=== PATIENT | male | born 2005 | race Caucasian/White ===

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

== ENCOUNTER 2024-03-24 10:11 | Outpatient (REF) | payer BC, SELFPAY ==
--- OUTSIDE RECORDS SUMMARY | 2024-03-24 10:20 | XMS_ITS | Encounter Summary ---
Author Organization [facility] [place] [address] Care Team Providers Care Director Of Cloud Services Name Role Phone Inez Cash MD Primary Care Provider [phone] Reason for Visit * Reason Comments Follow-up Encounter Details Date Type Department Care Team (Late st Contact Info) Description 12/20/2012 10:45 AM EST Follow-Up Child Development at [facility], [place], [facility] [place] [id number] Mimi Maurice MD [facility] [address] Speech and language disorder (Primary Dx); Reading disability, developmental; Anxiety; Disruptive behavior disorder; Behavioral disorder Discharge Disposition: Home Social History Tobacco Use Types Packs/Day Years Used Date Smoking Tobacco: Never Smokeless Tobacco: Never Alcohol Use Standard Drinks/Week Comments No 0 (1 standard drink = 0.6 oz pur e alcohol) Sex and Gender Information Value Date Recorded Sex Assigned at Not on file Gender Identity Not on file Sexual Orientation Not on file documented as of this encounter Last Filed Vital Signs Vital Sign Reading Time Taken Comments Blood Pressure 109/66 12/20/2012 11:07 AM EST Pulse 96 12/20/2012 11:07 AM EST Temperature - - Respiratory Rate 20 12/20/2012 11:0 7 AM EST Oxygen Saturation - - Inhaled Oxygen Concentration - - Weight 35.2 kg (77 lb 9.6 oz) 3 11:07 AM EST Height 144.2 cm (4' 8.77) 12/20/2012 1 1:07 AM EST Head Circumference 54.5 cm 12/20/2012 11 :07 AM EST Body Mass Index 16.93 12/20/2012 11:07 AM EST Body Mass Index Percentile 59.74% 12/20 11:07 AM EST Growth Chart: [facility] (Boys, 2-2 0 Years) documented in this encounter Patient Instructions * Patient Instructions* Mimi Maurice MD - 12/20/2012 11:29 AM EST 1. I recommend continuing with Risperdal 0.5 mg (0.5 mL) twice daily 2. It sounds as if Torin is finally receiving the right amount of reading support this year. Given history of a significant reading disability he should receive reading support regularly through the school year as well as through the summer 3. I am so pleased that Torin is involved in some extracurricular activities such as soccer and basketball. 4. Continue with the behavioral management plans at school since they seem to really be effective for him this year. 5. Continue to provide Torin with social opportunities to get together with friends 6. Be wary of developmental optometrists if that is indeed what the OT is suggesting. Both the [employer] as well as the [employer] opthalmology have put out statements against vision therapy in that there is no evidence of such therapies being of assistance in children with reading disabilities. 7. We will do some bloodwork today as monitoring on the Risperdal-blood sugar and lipid panel documented in this encounter Progress Notes * Mimi Maurice MD - 12/20/2012 9:28 PM EST Torin Beatty [place] 2005 12/20/2012 Torin comes in for a follow up visit accompanied by his mother. As you may recall, Torin has a history of a significant language disorder, language based learning disabilities, anxiety and a disruptive behavior disorder. Currently torin is taking 0.5 mg of Risperdal bid, which is a dose increase that was managed in conjunction with his primary care provider this summer. Since the last visit, Torin has been generally doing quite well. He had a good school year last year and made good progress, but towards the end of the school year things became a little rough. He then had a very hard summer. His behavior became more and more aggressive and disruptive. He ended up being asked to leave a soccer camp after only one day. I had a discussion with his primary care provider regarding these behaviors and we slightly increased the dose of Risperdal up to 0.5 mg twice daily. With that, Torin has had a huge success. He started the school year well and is doing well both in terms of his learning progress as well as his behavior. His mother had been unsure about his new teacher since she is a little less structured, but she is very encouraging and gives Torin positive attention and it is working out very well. Torin has made good gains in terms of his reading and is finally starting to enjoy it as well. The reading became better after his mother and a new specialist in the school really pushed testing to be done, which revealed just how far behind Torin was. With the extra help, he really seems to be starting to take off. He is doing well in math except for word problems. Torin is not having any side effects from the Risperdal. He does eat a good amount, but he seems to be growing steadily in an appropriate manner. He is sleeping well. Torin is doing okay socially. He does seem to have some friends who will come to the house and play and so he can get along with appropriately. He was placed in a classroom with students who have been with him for a long time and who seem to do well with him as well. Review of Systems: General: no concerns HEENT :no concerns Respiratory :no concerns Cardiovascular :no concerns Gastrointestinal :no concerns Genitourinary :no concerns Neurological :no concerns Musculoskeletal :no concerns Hemat/Lymph :no concerns Allergic/Immuno :no concerns Psych/Mental :doing quite well Endocrine :no concerns Skin :no concerns Physical Examination: GENERAL ASSESSMENT:well developed and well nourished SKIN: normal color, no lesions EYES: normal eyes NOSE: normal external appearance MOUTH: normal mouth and throat NECK: normal CHEST: Lungs clear to auscultation, good air entry throughout HEART: regular rate and rhythm,normal S1/S2,no murmurs EXTREMITY: normal and symmetric movement,normal range of motion,no joint swelling Neurological Examination: Reflexes 2+ throughout Strength 5 out of 5 throughout Alert and appropriate, language somewhat atypical but able to answer questions and follow directions well Assessment: Torin Talamantes is a 7-year-old boy with a history of significant language disorder and language-based learning disabilities who also has a history of anxiety and a disrupted behavioral disorder including significant aggression. Torin continues to be very sensitive to the effects of Risperdal in a positive way. Small changes in doses lead to good control of behavior. Torin is happy and seems to be adjusting well to his current school year. He is finally starting to make some progress in his reading with more appropriate services. Overall, I am very happy with how Torin is doing currently. Patient Instructions 1. I recommend continuing with Risperdal 0.5 mg (0.5 mL) twice daily 2. It sounds as if Torin is finally receiving the right amount of reading support this year. Given history of a significant reading disability he should receive reading support regularly through the school year as well as through the summer 3. I am so pleased that Torin is involved in some extracurricular activities such as soccer and basketball. 4. Continue with the behavioral management plans at school since they seem to really be effective for him this year. 5. Continue to provide Torin with social opportunities to get together with friends 6. Be wary of developmental optometrists if that is indeed what the OT is suggesting. Both the [employer] pediatrics as well as the [employer] of opthalmology have put out statements against vision therapy in that there is no evidence of such therapies being of assistance in children with reading disabilities. 7. We will do some bloodwork today as monitoring on the Risperdal-blood sugar and lipid panel-all normal It was a pleasure meeting with Torin and family in the Child Neurology and Development program. Please do not hesitate to contact me with any questions or concerns. Sincerely, Mimi Maurice M.D. Developmental Bone Char Puller documented in this encounter Plan of Treatment Not on file documented as of this encounter Procedures Procedure Name Priority Date/Time Associated Diagnosis Comments LDL CHOLESTEROL, DIRECT Routine 12/20/2012 11:58 AM EST Disruptive behavior disorder HDL/CHOL PROFILE Routine 12/20/2012 11:5 8 AM EST Disruptive behavior disorder GLUCOSE Routine 12/20/2012 11:58 AM EST Disruptive behavior disorder documented in this encounter Results * Glucose, random (12/20/2012 11:58 AM EST) Glucose 94 60 - 199 mg/dL [facility] Comment:Diabetes: >=200 mg/d L plus symptoms Blood specimen (specimen) 12/20/2012 11:58 AM EST 12/20/2012 12:04 PM EST Narrative Resulting Agency Comment Spec In Lab Mimi Maurice MD CHEMISTRY ORDERABLES Performing Organization Address [facility] de Phone Number [facility] * LDL Cholesterol, Direct (12/20/2012 11:58 AM EST) LDL Cholesterol, Direct 76 <=99 mg/dL [facility] Comment: The National Cholesterol Education Program (NCEP) has set the following guidelines for LDL Cholesterol: Reference range: ?? Optimal: ?<100 mg/dL ?? Near Optimal/Above Optimal: ?? 100-129 mg/dL ?? Borderline high: ?130-159 mg/dL ?? High: ? 160-189 mg/dL ?? Very high: ?>el=794 mg/dL DEE 2001: 28519):9413-4027 Blood specimen (specimen) 12/20/2012 11:58 AM EST 12/20/2012 12:04 PM EST Narrative Resulting Agency Comment Spec In Lab Mimi Maurice MD CHEMISTRY ORDERABLES Performing Organization Address [facility] de Phone Number [facility] * HDL/Cholesterol Profile (12/20/2012 11:58 AM EST) Cholesterol, Total 140 <=199 mg/dL [facility] Comment: Recommendations of the NCEP Adult Treatment Panel for the following risk cutoff thresholds for the [place] population: Desirable: <200 mg/dL Borderline High: 200-239 mg/dL High: > or = 240 mg/dL HDL Cholesterol 55 >=40 mg/dL [facility] Comment: Reference range: ??Low HDL: ?? < 40 mg/dL ??Normal: ?40-60 mg/dL ??Desirable: > 60 mg/dL DEE 2001; 285(19):0072-2760 Cholesterol/HDL Ratio 2.5 ratio [facility]EDDY [facility] Comment: A Cholesterol to HDL ratio below 4:1 is desirable. ??Studies suggest that increased CAD risk occurs at ratios above 5 for females and above 6 for men. ? [place] Heart Association ??(http://www.americanheart.org) ? Zoila Int Med, 1994; 121:641 ? AM J Med, 1998; 105(1A):48S Blood specimen (specimen) 12/20/2012 11:58 AM EST 12/20/2012 12:04 PM EST Narrative Resulting Agency Comment Spec In Lab Mimi Maurice MD CHEMISTRY ORDERABLES [facility] documented in this encounter Visit Diagnoses Diagnosis Speech and language disorder- Primary Other speech disturbance Reading disability, developmental Developmental dyslexia Anxiety Anxiety state, unspecified Disruptive behavior disorder Unspecified disturbance of conduct Behavioral disorder Unspecified disturbance of conduct documented in this encounter Care Teams Director Of Cloud Services Relationship Specialty Start Date End Date Inez Cash MD [address] [place] [address] PCP - General 01/15/10 documented as of this encounter
--- OUTSIDE RECORDS SUMMARY | 2024-03-24 10:20 | XMS_ITS | Clinical Summary ---
Author Organization [facility] Address [facility] [place] [address] Care Team Providers Care Marketing Producer Name Role Phone Inez Cash MD Primary Care Provider [phone] Allergies No known active allergies Medications Medication Sig Dispensed Refills Start Date End Date Status PEDIATRIC MULTIVITAMIN ORAL Take by mouth. Active FLUoxetine (PROZAC) 20 mg/5 mL Solution Take 2.5 mL for 2 weeks, then increase to 5 mL every morning 120 mL 12 10/11/2013 Active risperiDONE (RISPERDAL) 1 mg/mL Solution GIVE ONE-HALF ML BY MOUTH TWO TIMES A DAY 30 mL 3 11/27/2014 Active Active Problems Problem Noted Date Diagnosed Date Receptive expressive language disorder 1 Disruptive behavior disorder 09/16/2010 Anxiety 09/16/2010 Social History Tobacco Use Types Packs/Day Years Used Date Smoking Tobacco: Never Smokeless Tobacco: Never Alcohol Use Standard Drinks/Week Comments No 0 (1 standard drink = 0.6 oz pur e alcohol) Sex and Gender Information Value Date Recorded Sex Assigned at Not on file Gender Identity Not on file Sexual Orientation Not on file Last Filed Vital Signs Vital Sign Reading Time Taken Comments Blood Pressure 99/57 10/11/2013 7:57 AM EDT Pulse 100 10/11/2013 7:57 AM EDT Temperature - - Respiratory Rate 20 12/20/2012 11:07 AM EST Oxygen Saturation - - Inhaled Oxygen Concentration - - Weight 39.8 kg (87 lb 12.8 oz) 10/11/2013 7:57 A M EDT Height 150 cm (4' 11.06) 10/11/2013 7:57 AM EDT Body Mass Index 17.7 10/11/2013 7:57 AM EDT Plan of Treatment Health Maintenance Due Date Last Done Comments HPV vaccine (1 - Male 3-dose series) 05/11/2018 HIV screen 05/11/2021 Hepatitis C Screening 05/11/2021 Hepatitis B vaccine (0-59 yrs) (1) 05/11/2022 Tetanus/Diphtheria/Pertussis Vaccines (1 - Tdap) 05/11 Covid-19 Vaccine (1 - 2023- season) 2023 Influenza (Flu) vaccine (1 o f 1 - Influenza standard series) 10/11/2023 Care Teams Marketing Producer Relationship Specialty Start Date End Date Inez Cash MD [address] [place] [address] PCP - General 01/15/10
--- OUTSIDE RECORDS SUMMARY | 2024-03-24 10:20 | XMS_ITS | Encounter Summary ---
Author Organization [facility] [place] [address] Care Team Providers Care Paralegal Secretary Name Role Phone Inez Cash MD Primary Care Provider [phone] Reason for Visit * Reason Onset Date Comments Medication Refill 07/01/2012 Encounter Details Date Type Department Care Team (Late st Contact Info) Description 07/01/2012 [place] [id number] Chioma Martinez, RN Anxiety (Primary Dx); Disruptive behavior disorder Social History Tobacco Use Types Packs/Day Years Used Date Smoking Tobacco: Never Smokeless Tobacco: Never Alcohol Use Standard Drinks/Week Comments No 0 (1 standard drink = 0.6 oz pur e alcohol) Sex and Gender Information Value Date Recorded Sex Assigned at Not on file Gender Identity Not on file Sexual Orientation Not on file documented as of this encounter Plan of Treatment Not on file documented as of this encounter Visit Diagnoses Diagnosis Anxiety- Primary Anxiety state, unspecified Disruptive behavior disorder Unspecified disturbance of conduct documented in this encounter Care Teams Paralegal Secretary Relationship Specialty Start Date End [place] [address] PCP - General 01/15/10 documented as of this encounter
--- OUTSIDE RECORDS SUMMARY | 2024-03-24 10:20 | XMS_ITS | Encounter Summary ---
Author Organization [facility] Address [facility] [place] [address] Care Team Providers Care Superintendent Radio Communications Name Role Phone Inez Cash MD Primary Care Provider [phone] Reason for Referral * Psychiatric (Routine) - Closed Specialty Diagnoses / Procedures Referred By Mary t Referred To Contact Psychiatry Diagnoses Behavior disorder Verbal auditory hallucinations Mimi Maurice MD [facility] [address] [facility] [address] [place] [address] Referral ID Status Reason Start Date Expiration Date V isits Requested Visits Authorized [id number] Closed Consult, Test & Treat 10/30/2011 04/27/2012 1 1 Reason for Visit * Reason Onset Date Comments Follow-up 10/23/2011 Encounter Details Date Type Department Care Team (Late st Contact Info) Description 10/23/2011 Telephone [place] [address] Mimi Maurice MD [facility] [place] [address] Follow-up Social History Tobacco Use Types Packs/Day Years Used Date Smoking Tobacco: Never Smokeless Tobacco: Never Alcohol Use Standard Drinks/Week Comments No 0 (1 standard drink = 0.6 oz pur e alcohol) Sex and Gender Information Value Date Recorded Sex Assigned at Not on file Gender Identity Not on file Sexual Orientation Not on file documented as of this encounter Miscellaneous Notes * Telephone Encounter - Neilsen, Marisabel K - 10/30/2011 9:22 AM EDT Mother called and left a message asking for you to make a referral to see Dr. Terrazas. * Telephone Encounter - Mimi Maurice MD - 10/29/2011 8:39 AM EDT Left mom a message with the names of 2 options Anjel Hall MD at [facility] as well as number for psychopharm clinic here. [phone]) * Telephone Encounter - Mimi Maurice MD - 10/23/2011 2:58 PM EDT Torin is complaining of hearing voices and that the voices are telling him to do things. This has been escalating over the past several weeks Has been more aggressive at school recently in a way that has not been over the past couple of years * Telephone Encounter - Mimi Maurice MD - 10/23/2011 2:44 PM EDT Left a message for mom to call back * Telephone Encounter - Lynne Wolff - 10/23/2011 9:03 AM EDT Mom needs to speak to Dr. Maurice. Some new developments and she is concerned. Please call for details. Mom thinks he needs to be seen soon but there are no openings until March. documented in this encounter Plan of Treatment Scheduled Referrals Name Type Priority Associated Diagnoses Orde r Schedule REFERRAL TO CHILD AND ADOLESCENT PSYCHIATRY Outpatient Referral Routine Behavior disorder Verbal auditory hallucinations Ordered: 10/30/2011 documented as of this encounter Visit Diagnoses Diagnosis Behavior disorder Unspecified disturbance of conduct Verbal auditory hallucinations Hallucinations documented in this encounter Care Teams Superintendent Radio Communications Relationship Specialty Start Date End Date Inez Cash MD [address] [facility] [facility] [place] [address] PCP - General 01/15/10 documented as of this encounter
--- OUTSIDE RECORDS SUMMARY | 2024-03-24 10:20 | XMS_ITS | Encounter Summary ---
Author Organization [facility] Address [facility] [place] [address] Care Team Providers Care Painter Rough Name Role Phone Inez Cash MD Primary Care Provider [phone] Reason for Visit * Reason Comments Follow-up Encounter Details Date Type Department Care Team (Late st Contact Info) Description 02/26/2012 10:30 AM EST [place] [phone] Mimi Maurice MD [facility] [place] [address] Anxiety; Disruptive behavior disorder; Receptive expressive language disorder Discharge Disposition: Home Social History Tobacco [...] Sign Reading Time Taken Comments Blood Pressure 100/58 02/26/2012 10:39 AM EST Pulse 94 02/26/2012 10:39 AM EST Temperature - - Respiratory Rate - - Oxygen Saturation - - Inhaled Oxygen Concentration - - Weight 31.4 kg (69 lb 3.2 oz) 3 10:39 AM EST Height 140 cm (4' 7.12) 02/26/2012 10: 39 AM EST Head Circumference 55.5 cm 02/26/2012 10 :39 AM EST Body Mass Index 16.01 02/26/2012 10:39 AM EST Body Mass Index Percentile 48.81% 02/25 10:39 AM EST Growth Chart: CDC (Boys, 2-2 0 Years) documented in this encounter Patient Instructions * Patient Instructions* Mimi Maurice MD - 02/26/2012 11:54 AM EST 1. I recommend weaning the risperdal-currently he is taking 5 drops twice daily. I recommend decreasing to three drops twice daily for 4 days, then decrease to 1 drop twice daily for 4 days, then decrease to 1 drop only in the evenings for 4 days, then stop it altogether. 2. We will most likely start Zoloft a couple of weeks after the Risperdal is discontinued to address Torin's anxiety and rigidity but I would like to see him mood and behavior for a bit off medications altogether. 3. Please see handout with information about Zoloft 4. Continue with school based services including speech and language therapy 5. Continue with behavioral management program at school since that seems to be an effective systemfor Torin. 6. Follow up by phone about 10 days after the Risperdal has been stopped. documented in this encounter Progress Notes * Mimi Maurice MD - 02/28/2012 1:29 PM EST Torin Beatty [place] 2005 02/26/2012 Torin comes in for a follow up visit accompanied by his parents. As you may recall, Torin has a history of a language disorder, and a mood disorder. At the last visit Torin had been doing fairly welland we opted to leave everything the same. Since the last visit, Torin has been doing awesome. He is currently in third grade with a teacherhe really likes and who seems to understand him well. Torin continues to have services with the air liaison and special staff in terms of reading but Torin has really made some nice jumps in terms of reading comprehension this year. Torin also continues to receive speech and language therapy. Torin continues to go great in math which comes to him easily and he is on grade level or even slightly higher. Torin does continue to have some behavioral struggles but not the aggression he had in the past. His teacher uses a graded behavioral management system in the classroom which seems to be working well for Torin. Torin is monitored for things like following directions, listening to his teacher, being in other people's space, etc. If he earns an A for the day, he earns a dollar when he gets home from school (he is trying to save up for a trip to [facility]), if he earns a D, there is a phone callhome. Torin is doing much better socially then in the past. He has made some friends with whom he really likes to hang out. They will eat lunch together and play at recess together. Torin rolled his eyesand signed about 1 boy that really likes to spend time with him, but who Torin does not like as much (this boy has Asperger's syndrome). Currently Torin is playing basketball, he is doing well following the rules and seems to enjoy both the game as well as the camaraderie. In the early fall I had spoken with Torin's mother due to concerns a bout Torin hearing voices. He had an evaluation with the psychiatry department here and the recommendation was to slightly increase the dose of Risperdal with thoughts that there were not enough symptoms to be evidence of a thought disorder. Since that time, there has been much less concern or mention of the voices. However, Torin has been described as increasingly anxious and rigid. This has gotten to the point that his symptoms of anxiety really seem to interfere with his functioning both at home and at school. Torin continues to be somewhat variable in terms of his focus and attention which changes on a day to day basis. Overall, he is able to get most of his work done at school and at home with some support. Review of Systems: General: no concerns HEENT :no concerns Respiratory :no concerns Cardiovascular :no concerns Gastrointestinal :no concerns Genitourinary :no concerns Neurological :no concerns Musculoskeletal :no concerns Hemat/Lymph :no concerns Allergic/Immuno :no concerns Psych/Mental :anxious, as above Endocrine :no concerns Skin :no concerns Physical Examination: GENERAL ASSESSMENT:well developed and well nourished SKIN: normal color, no lesions EYES: normal eyes NOSE: normal external appearance MOUTH: normal mouth and throat NECK: normal CHEST: Lungs clear to auscultation, good air entry throughout HEART: regular rate and rhythm,normal S1/S2,no murmurs ABDOMEN: soft,non-distended,no masses,no hepatosplenomegaly EXTREMITY: normal and symmetric movement,normal range of motion,no joint swelling Neurological Examination: Reflexes 2+ throughout Strength 5 out of 5 throughout Alert and appropriate, language still somewhat delayed but huge improvements from the past, really able to engage, chat about school and answer questions Assessment: Torin is a sweet 6 year old boy with a history of a language disorder, a mood disorder and a disruptive behavioral disorder who has been doing great. He has made gains in all areas including academics, social skills and behavior. His aggression has been significantly reduced for quite a while, however, he remains fairly anxious and rigid. At this point in time, it seems reasonable to try and address the anxiety medically while reducing his risperdal given hism much better behavioral regulation. Patient Instructions 1. I recommend weaning the risperdal-currently he is taking 5 drops twice daily. I recommend decreasing to three drops twice daily for 4 days, then decrease to 1 drop twice daily for 4 days, then decrease to 1 drop only in the evenings for 4 days, then stop it altogether. 2. We will most likely start Zoloft a couple of weeks after the Risperdal is discontinued to address Torin's anxiety and rigidity but I would like to see him mood and behavior for a bit off medications altogether. 3. Please see handout with information about Zoloft 4. Continue with school based services including speech and language therapy 5. Continue with behavioral management program at school since that seems to be an effective systemfor Torin. 6. Follow up by phone about 10 days after the Risperdal has been stopped. It was a pleasure meeting with Torin and family in the Child Neurology and Development program. Please do not hesitate to contact me with any questions or concerns. Sincerely, Mimi Maurice M.D. Developmental Monogram Maker documented in this encounter Plan of Treatment Not on file documented as of this encounter Visit Diagnoses Diagnosis Anxiety Anxiety state, unspecified Disruptive behavior disorder Unspecified disturbance of conduct Receptive expressive language disorder Mixed receptive-expressive language disorder documented in this encounter Care Teams Painter Rough Relationship Specialty Start Date End Date Inez Cash MD [address] [place] [address] [place] [address] PCP - General 01/15/10 documented as of this encounter
--- OUTSIDE RECORDS SUMMARY | 2024-03-24 10:20 | XMS_ITS | Encounter Summary ---
Author Organization [facility] Address [facility] [place] [address] Care Team Providers Care Boiler Riveter Name Role Phone Inez Cash MD Primary Care Provider [phone] Reason for Visit * Reason Comments Other Encounter Details Date Type Department Care Team (Late st Contact Info) Description 03/11/2012 Telephone Child Development at [facility] [place] [phone] Abdiel Saez MD [facility] [place] [address] Social History Tobacco Use Types Packs/Day Years [...] encounter Miscellaneous Notes * Telephone Encounter - Abdiel Saez MD - 03/11/2012 2:23 PM EST Doing excellent initially off the risperdal but more recently has had increased agitation and frustration, more easily bothered by thing Seeing some good as well in terms of more laughing, etc.. Plan: We will start zoloft this weekend as we had discussed and see whether that helps sifficientlyrather then running to restart the risperdal * Telephone Encounter - Abdiel Saez MD - 03/11/2012 2:23 PM EST Message copied by ABDIEL SAEZ on ThuMar 11, 2012 2:23 PM ------ Message from: ELICIA NEWTON Created: ThuMar 11, 2012 8:19 AM Contact: mom: Ingrid Mom phoned re: medication reduction. Please call for details. [phone]. documented in this encounter Plan of Treatment Not on file documented as of this encounter Visit Diagnoses Not on filedocumented in this encounter Care Teams Boiler Riveter Relationship Specialty Start Date End Date Inez Cash MD [address] [place] [address] PCP - General 01/15/10 documented as of this encounter
--- OUTSIDE RECORDS SUMMARY | 2024-03-24 10:20 | XMS_ITS | Encounter Summary ---
Author Organization [facility] Address [facility] [place] [address] Care Team Providers Care Tool Designer Name Role Phone Inez Cash MD Primary Care Provider [phone] Reason for Visit * Reason Comments Medication Refill Encounter Details Date Type Department Care Team (Late st Contact Info) Description 07/11/2014 Refill [place] [address] Mimi Maurice MD [facility] [place] [address] Social History Tobacco Use Types Packs/Day Years [...] on filedocumented in this encounter Care Teams Tool Designer Relationship Specialty Start Date End Date Inez Cash MD [address] [place] [address] [place] [address] PCP - General 01/15/10 documented as of this encounter
--- OUTSIDE RECORDS SUMMARY | 2024-03-24 10:20 | XMS_ITS | Encounter Summary ---
Author Organization [facility] Address [facility] [place] [address] Care Team Providers Care Church Worker Name Role Phone Inez Cash MD Primary Care Provider [phone] Reason for Visit * Reason Comments Behavioral Disorder Encounter Details Date Type Department Care Team (Late st Contact Info) Description 01/27/2011 11:15 AM EST Follow-Up Child Development at [facility] [place] [phone] Mimi Maurice MD [facility] [place] [address] Speech and language disorder (Primary Dx); Behavior disorder; Anxiety Discharge Disposition: Home Social History Tobacco Use [...] Sign Reading Time Taken Comments Blood Pressure 110/70 01/27/2011 11:20 AM EST Pulse 95 01/27/2011 11:20 AM EST Temperature - - Respiratory Rate 20 01/27/2011 11:2 0 AM EST Oxygen Saturation - - Inhaled Oxygen Concentration - - Weight 28.3 kg (62 lb 6.4 oz) 1 11:20 AM EST Height 132 cm (4' 3.97) 01/27/2011 11: 20 AM EST Head Circumference 55.3 cm 01/27/2011 11 :20 AM EST Body Mass Index 16.24 01/27/2011 11:20 AM EST Body Mass Index Percentile 63.15% 01/27 11:20 AM EST Growth Chart: [facility] (Boys, 2-2 0 Years) documented in this encounter Patient Instructions * Patient Instructions* Mimi Maurice MD - 01/27/2011 11:46 AM EST 1. Continue with risperdal at current dose- we will work on letting torin outgrow his dose ratherthan decrease the medication at that point. 2. Continue with behavioral management strategies that you are using at home with Torin at home including warning before transitions and schedule changes, keeping structure and routine 3. Continue providing an extended school year given the history of regression with school breaks- this should be 4 days per week 2-3 hours per day minimum to continue the structure and routine that Torin needs to continue to be able to make developmental progress. 4. Continue speech and language therapy and reading support. 5. Follow up in 4 months documented in this encounter Progress Notes * Mimi Maurice MD - 01/27/2011 11:39 AM EST Subjective: Patient ID: Torin Talamantes is a 5 y.o. male. HPI Torin comes in for a follow up visit accompanied by his mother and father. As you may recall, Torinhas a history of a significant language disorder, anxiety and behavioral disorder. Since the last visit, Torin has continued to do very well. He is currently in second grade and has been making great progress in terms of his reading with a new reading program (which his mother could not remember the name of, in the past he had been using the [employer] program). Torin has strong mathskills and easily completes on grade level math. Torin continues to receive speech and language therapy at school. He is scheduled to begin a social skills group in February. Torin does continue to have episodes of anger but much less frequent than in the past. He has made some friends at school. Mrs. Talamantes had tried again to slowly discontinue the Risperdal but Torin became more angry and irritable and had significant difficulty at school. Torin continues to be hungry on the Risperdal but it is manageable. No other side effects have been noted by the family. Torin is sleeping well. He continues to be a very picky eater. He won't eat any mushy foods such aspasta or yogurt and he won't drink milk. He eats meat and some cheese. No vegetables. Apples are his only fruit. Review of Systems Constitutional: Negative. Appetite change: very picky eater, limied choices. HENT: Negative. Eyes: Negative. Respiratory: Negative. Cardiovascular: Negative. Gastrointestinal: Negative. Genitourinary: Negative. Skin: Negative. Neurological: Negative. Psychiatric/Behavioral: Positive for behavioral problems (significantly improved but still gets angry at times). Objective: Physical Exam Vitals reviewed. Constitutional: He is oriented to person, place, and time and well-developed, well-nourished, and in no distress. HENT: Head: Normocephalic and atraumatic. Eyes: Pupils are equal, round, and reactive to light. Neck: Normal range of motion. Cardiovascular: Normal rate and regular rhythm. Pulmonary/Chest: Effort normal. Musculoskeletal: Normal range of motion. Neurological: He is alert and oriented to person, place, and time. He exhibits normal muscle tone. Gait normal. Coordination normal. Skin: Skin is warm. Neurologic Exam Mental Status Oriented to person, place, and time. Cranial Nerves CN III, IV, Pupils are equal, round, and reactive to light. Gait, Coordination, and Reflexes Gait Gait: normal Assessment and Plan: Torin is a sweet 5 year old boy with a history of a language disorder, anxiety and a behavior disorder. Overall, Torin has been doing great with his learning, his socialization and his behavior over the past 9 months. We have tried to wean the Risperdal a couple of times with return of behavioral difficulties. Torin does fine as long as he is on a stable dose of Risperdal, despite a fair amount of growth. At this point, I think we are better off keeping him on the same dose of medication and allowing him to slowly outgrow his dose. Torin has made great progress with his learning and development with the services he has been receiving at school, however, with any school breaks, he does seem to regress in his skills and behavior. Patient Instructions 1. Continue with risperdal at current dose- we will work on letting torin outgrow his dose ratherthan decrease the medication at that point. 2. Continue with behavioral management strategies that you are using at home with Torin at home including warning before transitions and schedule changes, keeping structure and routine 3. Continue providing an extended school year given the history of regression with school breaks- this should be 4 days per week 2-3 hours per day minimum to continue the structure and routine that Torin needs to continue to be able to make developmental progress. 4. Continue speech and language therapy and reading support. 5. Follow up in 4 months It was a pleasure meeting with Torinse Rogerio Talamantes and family in the Child Neurology and Development program. Please do not hesitate to contact me with any questions or concerns. Sincerely, Mimi Maurice M.D. Developmental Ethylbenzene Cracking Supervisor documented in this encounter Plan of Treatment Not on file documented as of this encounter Visit Diagnoses Diagnosis Speech and language disorder- Primary Other speech disturbance Behavior disorder Unspecified disturbance of conduct Anxiety Anxiety state, unspecified documented in this encounter Care Teams Church Worker Relationship Specialty Start Date End Date Inez Cash MD [address] [facility] [place] [address] PCP - General 01/15/10 documented as of this encounter
--- OUTSIDE RECORDS SUMMARY | 2024-03-24 10:20 | XMS_ITS | Encounter Summary ---
Author Organization [facility] Address [facility] [place] [address] Care Team Providers Care Clinical Educator Name Role Phone Inez Cash MD Primary Care Provider [phone] Reason for Visit * Reason Comments Medication Refill Encounter Details Date Type Department Care Team (Late st Contact Info) Description 06/18/2011 [place] [address] Mimi Maurice MD [facility] [place] [address] Developmental delay (Primary Dx) Social History Tobacco Use Types Packs/Day Years [...] as of this encounter Visit Diagnoses Diagnosis Developmental delay- Primary Lack of normal physiological development, unspecified documented in this encounter Care Teams Clinical Educator Relationship Specialty Start Date End Date Inez Cash MD [address] [place] [address] PCP - General 01/15/10 documented as of this encounter
--- OUTSIDE RECORDS SUMMARY | 2024-03-24 10:20 | XMS_ITS | Encounter Summary ---
[facility] Address [facility] [place] [address] Care Team Providers Care Background Check Coordinator Name Role Phone Inez Cash MD Primary Care Provider [phone] Encounter Details Date Type Department Care Team (Latest Contact Info) Description 11/21/2011 10:30 AM EDT Office Visit Psychiatry [place] [phone] Fanny Gleason MD [facility] [address] [place] [address] Pervasive developmental disorder (Primary Dx); Receptive expressive language disorder; Disruptive behavior disorder Social History Tobacco Use Types Packs/Day Years Used Date Smoking Tobacco: Never Smokeless Tobacco: Never Alcohol Use Standard Drinks/Week Comments No 0 (1 standard drink = 0.6 oz pur e alcohol) Sex and Gender Information Value Date Recorded Sex Assigned at Not on file Gender Identity Not on file Sexual Orientation Not on file documented as of this encounter Progress Notes * Sim Terrazas MD - 11/26/2011 9:57 AM EDT I have examined Torin and met with her parent along with Dr Gleason and agree with her formulation and plan as documented. My MSE confirms hers and I do not believe that Torin meets criteria for a formal psychotic spectrum thought disorder at present. I do not think that a small dose of risperdal is unreasonable given the extent of her symptoms and dysregulation. We are happy to work with Dr Garcia in co-managing psychotropic medication. * Fanny Gleason I - 11/21/2011 2:29 PM EDT DIAGNOSTIC INTERVIEW CPT CODE 50336/84915; DORA 5100 Location: Office Time Spent: 90 minutes Examining Provider: FANNY GLEASON MD School/Grade: grade 3- [employer] Referred by: Dr. Law-Annita Primary Physician: Dr. Inez [facility] Information Source: Parents (Vani and Shai) and patient Guardian: parents ID and chief complaint: 6 yo CM with a history of PDD NOS, expressive and receptive language disorder, and disruptive behavior disorder, referred by Pediatric Neurology for evaluation of auditory hallunications History of Present Illness: Torin is an 6 yo CM who is referred by Dr. Ani Ariza in Pediatric Neurology due to an increase in Torin' reports of auditory hallucinations over the last several months. Parents report that his first mention of hearing voices was approximately 2 years ago during a meltdown in which he stated he had heard a voice telling him to do it. Parents state he was started on risperdal at the time, which he responded to very well, and continues currently at a dose of 0.5mg pobid. Parents state they have not heard anything about the AH again until recently, when Torin started talking again about a voice named Mean Sadiq who tells him to do bad things, and tells him he is stupid. Parents state this still happens mostly in the context of when he is in trouble, either at home or at school. Parents deny any signs of paranoia, delusions, or looseness of associations. Theystate that he is having more mood swings during the course of the school day over the past several weeks to months, however in general they report that he is so much better than when they first sought treatment for his behavioral issues around age 4/5. Parents feel that the risperdal has been very helpful for this, but they also see that a lot of his acting out and irritability was secondary tohis difficulty in communicating secondary to his language issues. He continues to get speech and language and other school-based services and is doing very well. Teachers report he has difficulty focusing on sustained tasks that he finds difficult, such as reading, and that he is easily frustrated by these and can become restless and figity. Parents state that he was on a low dose of methylphenidate around the age of 2 which was helpful for focus and attention as well as for disruptive behaviors, however they stopped it after some time because it didn't seem to be helping anymore. Parents state that Torin is now mostly a cooperative, well- adjusted kid who mostly gets along well with others.They state that he still gets easily overstimulated when in crowds or noisy places, but this seems better than it used to be. They state that his moods can be irritable at times, but far better than it used to be. Torin states that his mood is good. Parents state he sleeps well, falls asleep easilyand sleeps 11 hours per night on average with no decreased need for sleep. He denies SI/HI. Trauma/Abuse History: none Psychiatric and Treatment History: No history of psychiatric hospitalization. Substance Abuse History: none Medical History: Unremarkable, normal audiology exams per record Family Profile & Living Situation: Torin lives with his parents and older brother (12) in [facility]. They have multiple animals including horses, dogs, and chickens on their property. Dad worksfor [employer] full-time. Mom works part-time in the school district. Family Psychiatric, Substance Abuse and Medical History: Maternal GF-OCD/depr. Mom-depression (on celexa). Paternal cousin-bipolar (diagnosed age 30). Paternal GM alcoholism. No family history of ADHD, or schizophrenia. Development History: Torin was born at 40 weeks via induced vaginal delivery due to advanced maternal age per mom. No complications during or after delivery. Mom states Torin was a colicky, fussy baby always, and screamed a lot, was always difficult to console. He has always been sensitive to lightand sounds, and used to refuse to go out in the sunlight as a toddler until parents started giving h im sunglasses to wear. He met his developmental milestones, walking at 12 months, and first word before 12 months, but parents do not recall if he was making 2-3 word sentences by age 1. Adjustment to preschool at age 1 was difficult, due to sensory defensiveness as well as separation anxiety. He had unusual preoccupations with lining things up (colored markers) and would become distressed if things were moved out of order. Gets along well with peers now, though can be behaviorally rigid, and does not like big groups or noisy settings. Parents did have him engaged in occupational therapy at one time, but they did not feel it was helpful. Torin is currently in a regular classroom with a 1:1 aide. Mental Status Examination: List Assessment Instruments: Parent Measures: Marcello (mom) above threshold for inattention. Autism Quotient scores for both parents above threshold at 7 and 9. Additional screening questions for ASD asked: Positive responses to the following: Impairment in single nonverbal gesture. Some failureto develop age- appropriate relationships (though improved this year), lack of social or emotional reciprocity including making odd or inappropriate statements, impaired empathy prior to the age of 3 (which has been developing recently), difficulty sustaining to/fro conversations (unclear how much of this is secondary to language and/or attention issues), minimal make-believe play, and unusually in tense preoccupations with trains and lining up colors (which parents state he does much less now that he used to). No evidence of intense preoccupation with parts of objects. Child Measures: Not done Teacher Measures: Marcello above threshold for both inattention and hyperactivity domains by bothclassroom teachers. Torin is a tall, slender, blonde haired boy who appears his stated age. He is dressed in hiking pants, bright orange tshirt and shoes with no socks (his preference per parents). Eye contact with moderately good. Speech was normal rhythm, rate, volume, tone, and prosody, without latency or vocal tics, but with some odd phrasing. Attitude was pleasant, well-mannered, and polite during the interview. Not hyperactive and sat in chair for majority of interview, thought became restless towards end. Motor function was grossly normal without motor tics. Mood was euthymic. Affect was full and mood-congruent. Attention, concentration, and memory were all within normal limits. Thought Process was logical, linear and goal-directed, with no flight of ideas or looseness of associations. Thought contentwas negative for delusions, paranoia, or suicidal/homicidal ideation. Denied auditory and visual hallucinations. Insight was good. Judgment was good. Cognition was grossly normal with average intellig ence. AIMS score of 0. Assessment/Formulation: Auditory hallucinations in the absence of other symptoms of psychosis including delusions, paranoia, looseness of associations, and general impaired reality testing is unlikely evidence of a primary thought disorder. There is likewise nothing to suggest in today's assessmentthat there is an underlying bipolar disorder. However, given parents' report of increase in mood swings and disruptive behaviors in school, which have responded well in past to risperdal, it would bereasonable to try to increase the dose of the risperdal to address this, by adding an additional 0.5mg qday. I offered today to have Torin follow-up with me in 1-2 months following an increase in the medication, however the family expressed a preference that medication changes and follow-up be donewith Dr. Ani Ariza, as she has been the primary prescriber for this medication thus far. I thus have not made changes to the prescription today however the parents are interested in a trial of a higher dose of the medication. We discussed further that at this time, Torin's reports of auditory hallucinations seem to be mostly in the context of when he is in trouble for something, and advised parents that they try to downplay the presence of the auditory hallucinations and offer Torin other explanations for why he does bad things sometimes, such as that we all do bad things and that this doesn't make him a bad person. We discussed with parents as well the other cardinal signs of psychosis that they agree to monitor for, and that we would be happy to see Torin again in the future if he develops more symptoms to suggest a primary thought disorder. Torin does meet criteria for PDD NOS, and children on the autistic spectrum often have unusual beliefs or perceptions that may contribute to his report of AH. Lastly, Torin does have some features of ADHD, and another trial of a stimulant medication may be a reasonable option to help with focus and attention in the classroom setting, since parents report that he responded well to methylphenidate in the past. However, given parents' reticence at this time to add another psychotropic medication, it would be reasonable to first try an increase in the risperdal prior to a trial of a stimulant medication. DSM IV Diagnoses: AXIS I Pervasive developmental disorder NOS Expressive and Receptive Language Disorder Disruptive Behavior Disorder by history R/o ADHD AXIS II deferred AXIS III unremarkable AXIS IV Stressors: sensory defensiveness Assets: supportive family, intelligent AXIS V: GAF (Current) 55 Recommendations, Treatment Goals & Plan: 1. Would recommend a trial of increasing risperdal to 0.5mg tid 2. May consider trial of stimulant medication in future to address focus and attention if needed 3. No return appointment with Child Psychiatry made today, as parents would prefer that prescribingof medications remain with Dr. Maurice at this time 4. Parents understand that we are happy to see them back in clinic in the future if needed 5. Parents agree with this plan Safety risk Management Plan: [x] No current safety issues as patient denies suicidal or homicidal ideation. Medical issues that require notification of /consultation with another physician: no. Estimated Length of Treatment: undetermined Release to Review Care Plan with Provider: Release for contact with referring provider Treatment Plan Reviewed with Referral Source: will send copy of evaluation to primary provider Patient Instruction/Education Provided: Patient provided verbal instructions regarding plan. Patient understands the plan? Yes FANNY GLEASON MD documented in this encounter Plan of Treatment Not on file documented as of this encounter Visit Diagnoses Diagnosis Pervasive developmental disorder- Primary Unspecified pervasive developmental disorder, current or active state Receptive expressive language disorder Mixed receptive-expressive language disorder Disruptive behavior disorder Unspecified disturbance of conduct documented in this encounter Care Teams Background Check Coordinator Relationship Specialty Start Date End Date Inez Cash MD [address] [place] [address] PCP - General 01/15/10 documented as of this encounter
--- OUTSIDE RECORDS SUMMARY | 2024-03-24 10:20 | XMS_ITS | Encounter Summary ---
Author Organization [facility] Address [address] [place] [address] Care Team Providers Care Nuclear Medicine Supervisor Name Role Phone Unknown, Provider Primary Care Provider Unava ilable Reason for Visit * Reason Comments New Patient Visit Ance vulgaris. Patie nt is using OTC bobbin cleaner on face and a tretinoin cream . Spot on left elbow. * Referral (Routine) - Closed Specialty Diagnoses / Procedures Referred By Mary snyder Referred To Contact Dermatology [facility] [address] [place] [phone] Phone: tel: fax: Referral ID Status Reason Start Date Expiration Date Visits Re quested Visits Authorized [id number] Closed 1 1 Encounter Details Date Type Department Care Team (Late st Contact Info) Description 11/13/2020 9:15 EDT Office Visit [facility] [address] [place] [id number] Rosa Kaur MD [address] [place] [address] [place] [phone] Acne vulgaris (Primary Dx); Granuloma annulare Social History Tobacco Use Types Packs/Day Years Used Date Smoking Tobacco: Never Smokeless Tobacco: Never Interpersonal Safety Answer Date Record ed Physically Hurt Never 07/05/2020 Verbally Threaten Not on file 07/05/2020 Sex and Gender Information Value Date Recorded Sex Assigned at Not on file Legal Sex Male 9:21 EDT Gender Identity Male 09/21/2020 7:56 EDT Sexual Orientation Not on file documented as of this encounter Functional Status * Because of a physical, mental, or emotional condition, does this person have difficulty doing errands alone such as visiting a doctor's office or shopping? Answer Date of Assessment Author No 11/13/2020 9:29 EDT documented as of this encounter Mental Status * Because of a physical, mental, or emotional condition, does this person have serious difficulty concentrating, remembering, or making decisions? Answer Entry Date Author No 11/13/2020 9:29 EDT documented in this encounter Patient Instructions * Patient Instructions* Amparo Turner - 11/13/2020 9:15 EDT For acne: - Recommended the following regimen: - gentle oil free cleanser wash face in morning and nightly - Tretinoin 0.05% cream nightly to face as tolerated, reviewed potential for dryness and irritation. Start using every third night and slowly increase to nightly as tolerated. - Benzaclin 1-5% gel to face each morning - Daily moisturizing with non-comedogenic moisturizer. - Sun protection. - Take doxycycline 100 mg twice a day for 3 months DOXYCYCLINE Doxycycline is an antibiotic in the tetracycline family that we prescribe for many different dermatologic conditions (it has both antibacterial and anti- inflammatory effects in the skin). The usual dose is 50 or 100 mg twice daily- please be sure to check your prescription label for proper dosing. Most common adverse effects: ?? Mid-stomach burning (heartburn) ?? Nausea/vomiting ?? Photo-sensitivity (easier to get sunburn) Less common adverse effects: ?? Headache ?? Visual changes ?? Allergic reaction (rash, fever) ?? Liver damage ?? Anemia (destruction of red blood cells) ?? Yeast infection When taking Doxycycline, you should: ?? Take with food ?? Take with a full 8 oz glass of water ?? Do not lay down after taking for 20-30 min. ?? Use high-SPF sunscreen (with UVA/UVB protection) ?? Take medicine as directed by your provider Call the office with ANY questions or concerns. [facility] documented in this encounter Ordered Prescriptions Prescription Sig Dispense Quantity Refills Last Filled Start Date End Date doxycycline (VIBRA-TABS) 100 mg tablet Take 1 Tablet by mouth 2 times daily. May cause upset stomach or photosensitivity . 180 Tablet 11/13/2020 betamethasone dipropionate 0.05 % creamIndications:G ranuloma annulare Apply topically to affected area 2 times daily. Apply to elbow for 2-3 weeks, then use as needed for itch 45 g 3 11/13/2020 clindamycin-benzoy l peroxide (BENZACLIN) gelIndications:Acn e vulgaris Apply topically to affected area daily. Apply to affected area after the skin has been cleansed and dried. 25 g 11 11/13/2020 tretinoin (RETIN-A) 0.05 % creamIndications:A cne vulgaris Apply topically to affected area at bedtime. sparing. Do not apply immediately after washing, may sting. 45 g 6 11/13/2020 documented in this encounter Progress Notes * Damaris Adler MA - 11/13/2020 0915 EDT Review of Systems Constitutional: Negative for fatigue, fever and unexpected weight change. HENT: Negative for mouth sores. Eyes: Negative for pain. Respiratory: Negative for cough and shortness of breath. Cardiovascular: Negative for chest pain and palpitations. Gastrointestinal: Negative for abdominal pain, blood in stool, constipation, diarrhea, nausea and vomiting. Genitourinary: Negative for dysuria, frequency and hematuria. Musculoskeletal: Negative for myalgias, joint swelling, arthralgias and muscle stiffness in the morning. Skin: Negative for rash. Neurological: Negative for numbness and headaches. Endo/Heme/Allergies: Does not bruise/bleed easily. Psychiatric/Behavioral: Negative for sleep disturbance. The patient is not nervous/anxious. DAMARIS ADLER MA 11/13/2020 9:30 * Amparo Turner - 11/13/2020 0915 EDT Dermatology Outpatient Visit Note Chief Complaint Patient presents with ??? New Patient Visit Ance vulgaris. Patient is using OTC bobbin cleaner on face and a tretinoin cream . Spot on left elbow. Dermatologic History: No specialty comments available. Last Dermatology office visit: NPV SUBJECTIVE Mr. Talamantes is a 15 y.o. male who presents for new evaluation and treatment for acne on his face. Denies involvement of the chest and back. Also notes some scarring. First developed acne a few years ago. Was previously treating with tretinoin 0.025% cream 1-2 times a day, once in the morning, then occasionally at night. Noted mild dryness. Discontinued because he wasn't seeing any effecton acne. Treated with doxycyline this past Spring, tolerated well but had no effect on acne. Unsureif he was using topicals at the same time. Notes a history of depressed mood. Additionally, he notes a spot on his left elbow, present for several years, has grown over time. Occasionally itchy. Denies prior trauma to the area. No other similar spots on his body. No family history of diabetes. He is otherwise feeling well and has no other cutaneous concerns today. He denies any other new, changing, bleeding, tender, or non-healing skin lesions today. He has a current medication list which includes the following prescription(s): acetaminophen, aripiprazole, betamethasone dipropionate, clindamycin-benzoyl peroxide, doxycycline, fluoxetine, fluoxetine, indomethacin, promethazine, and tretinoin. He has No Known Allergies. OBJECTIVE VS: There were no vitals taken for this visit. Mr. Talamantes is healthy, well developed, well-nourished, in no acute distress, alert and interactive male sitting on the examination table with a normal affect. He is alert and oriented to person, place and time. He has Espinosa type II skin. Cutaneous focused exam of the face, chest, back, and left elbow was performed.The examination was notable for: - face: numerous diffusely scattered inflammatory papules and pustules, some crusted, numerous openand closed comedones, and ice pick scarring - left elbow: smooth somewhat annular pink-brown papules and one larger plaque ASSESSMENT/PLAN 1. Acne vulgaris - Gentle oil free cleanser wash face in morning and nightly - Tretinoin 0.05% cream nightly to face as tolerated, reviewed potential for dryness and irritation. Start using every third night and slowly increase to nightly as tolerated. - Benzaclin 1-5% gel to face each morning - Daily moisturizing with non-comedogenic moisturizer. - Sun protection. - Take doxycycline 100 mg twice a day for 3 months 2. 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 Discussed that while the cause of this condition is unknown, it is benign and often resolves spontaneously. There is some evidence that granuloma annulare is associated with the development of diabetes mellitus at any time in life. Discussed that there are no definitively successful treatments for granuloma annulare though topical corticosteroids could be attempted if desired. - Apply betamethasone cream to affected areas BID for 2-3 weeks, then prn for itch. - Discussed that doxycycline may have a positive effect on granuloma annulare. Med Orders Placed This Visit and Additions to the Medication List Medications ??? tretinoin (RETIN-A) 0.05 % cream Sig: Apply topically to affected area at bedtime. sparing. Do not apply immediately after washing, may sting. Dispense: 45 g Refill: 6 ??? clindamycin-benzoyl peroxide (BENZACLIN) gel Sig: Apply topically to affected area daily. Apply to affected area after the skin has been cleansed and dried. Dispense: 25 g Refill: 11 ??? betamethasone dipropionate 0.05 % cream Sig: Apply topically to affected area 2 times daily. Apply to elbow for 2-3 weeks, then use as needed for itch Dispense: 45 g Refill: 3 ??? doxycycline (VIBRA-TABS) 100 mg tablet Sig: Take 1 Tablet by mouth 2 times daily. May cause upset stomach or photosensitivity. Dispense: 180 Tablet Refill: 0 He will Return in about 6 months (around 05/14/2021) for acne. Scribe Attestation By time stamping my name below, I attest that this documentation has been prepared under the direction and in the presence of the provider listed as the provider on this encounter. Amparo Turner 11/13/2020 11:35 Provider Attestation By time stamping my name below, I, as the provider for this encounter, personally performed the services described in this documentation. All medical record entries made by the scribe were at my direction and in my presence. I have reviewed the chart and any discharge instructions and agree that the record reflects my personal performance and is accurate and complete. Rosa Kaur MD 11/13/2020 23:17 documented in this encounter Plan of Treatment Not on file documented as of this encounter Visit Diagnoses Diagnosis Acne vulgaris- Primary Other acne Granuloma annulare Other specified erythematous condition documented in this encounter Discontinued Medications Medication Sig Discontinue Reason Start Date End Da te tretinoin (RETIN-A) 0.025 % cream Apply topically daily. 11/13/2020 erythromycin with ethanoL (EMGEL) 2 % gel Apply topically 2 times daily. 11/13/2020 documented as of this encounter Care Teams Nuclear Medicine Supervisor Relationship Specialty Start Date End Date Unknown, Provider, PCP - General 11/28/15 documented as of this encounter
--- OUTSIDE RECORDS SUMMARY | 2024-03-24 10:20 | XMS_ITS | Encounter Summary ---
Author Organization [facility] [place] [address] Care Team Providers Care Food Services Director Name Role Phone Inez Cash MD Primary Care Provider [phone] Reason for Visit * Reason Onset Date Comments Medication Reaction 04/01/2012 Encounter Details Date Type Department Care Team (Late st Contact Info) Description 04/01/2012 Telephone Child Development at [facility] [place] [phone] Andria Riggs put in beat adjuster Reaction Social History Tobacco Use Types Packs/Day Years [...] encounter Miscellaneous Notes * Telephone Encounter - Andria Riggs RN - 04/02/2012 8:[address] Maurice and I discussed my conversation with Torin's mother and she agreed that we should keep things as they are because the zoloft is helping with the anger and aggression issue. * Telephone Encounter - Andria Riggs RN - 04/01/2012 11:25 AM EST I returned Mother's phone call for medication follow-up. Torin is doing better on the zoloft. This is his third week on the medication. Mother has been putting 2 drops of respirdal in his orange juice in the am and his angry has reduced. He is a much happier child. Although he is still quite fidgety. I will notify Dr. Maurice and if she has any suggestions I will phone Ingrid back. If no changesnecessary I will not call Ingrid. Dr. Maurice notified and agreed to continue with the zoloft and the respirdal. * Telephone Encounter - Andria Riggs RN - 04/01/2012 11:24 AM EST Message copied by ANDRIA RIGGS on [facility] Apr 01, 2012 11:24 AM ------ Message from: ELICIA NEWTON Created: ThuMar 30, 2012 8:38 AM Contact: mom: Ingrid Please call mom re: medication increase. [phone] * Telephone Encounter - Andria Riggs RN - 04/01/2012 11:19 AM EST Message copied by ANDRIA RIGGS on [facility] Apr 01, 2012 11:19 AM ------ Message from: ELICIA NEWTON Created: ThuMar 30, 2012 8:38 AM Contact: mom: Ingrid Please call mom re: medication increase. [phone] documented in this encounter Plan of Treatment Not on file documented as of this encounter Visit Diagnoses Not on filedocumented in this encounter Care Teams Food Services Director Relationship Specialty Start Date End Date Inez Cash MD [address] [place] [address] PCP - General 01/15/10 documented as of this encounter
--- OUTSIDE RECORDS SUMMARY | 2024-03-24 10:20 | XMS_ITS | Encounter Summary ---
Author Organization [facility] [place] [address] Care Team Providers Care Steward/Stewardess Tourist Class Name Role Phone Inez Cash MD Primary Care Provider [phone] Reason for Visit * Reason Onset Date Comments Medication Reaction 03/17/2012 Encounter Details Date Type Department Care Team (Late st Contact Info) Description 03/17/2012 Telephone Child Development at [facility] [place] [phone] Avni Gutierrez MD Medication Reaction Social History Tobacco Use Types Packs/Day [...] encounter Miscellaneous Notes * Telephone Encounter - Avni Gutierrez MD - 03/17/2012 5:31 PM EST I spoke with Torin's mother regarding his response to the initiation of Zoloft following a few years being treated with Risperdal. She shared with me that they started him on 0.5 cc of the liquid Zoloft and increased to 1 cc 2 days ago. Since this increase he is becoming extremely agitated and the school has sequestered him. His mother feels though today he is more calm than he was yesterday. I had explained to her that it's not unusual when one increases a dose of an SSRI to have some degree of agitation within the first 48-72 hours. They should then began to dissipate and returned to baseline following one week. My instructions to patients as if it persists beyond one week then it is timeto reconsider the use of an SSRI. Many times the SSRI when administered in the evening has an Torin's case sleep hygiene can be disturbed which leads to worsening of daytime behaviors. This is not the case as Torin is still sleeping through the night with no difficulty falling asleep. His mother states that he had done quite well on just 2 drops of Risperdal and wondered if she should just stop the Zoloft and restart this. I had indicated that I was covering all Dr. Maurice was out of the office and did not feel that it was appropriate to make such a major treatment change as it did not know Torin very well. As we are still in that window of transient agitation we decided to continue and she can speak with Dr. Maurice when she returns. Mother agrees and understands the plan. documented in this encounter Plan of Treatment Not on file documented as of this encounter Visit Diagnoses Not on filedocumented in this encounter Care Teams Steward/Stewardess Tourist Class Relationship Specialty Start Date End Date Inez Cash MD [address] [place] [address] PCP - General 01/15/10 documented as of this encounter
--- OUTSIDE RECORDS SUMMARY | 2024-03-24 10:20 | XMS_ITS | Clinical Summary ---
Author Organization [facility] Address [address] [place] [address] Care Team Providers Care Team Facilitator Name Role Phone Unknown, Provider Primary Care Provider Unava ilable Allergies No known active allergies Medications ARIPiprazole (ABILIFY) 2 mg tablet Take 2 mg by mouth daily. Active FLUoxetine (PROZAC) 10 mg capsule Take 10 mg by mouth daily. Active FLUoxetine (PROZAC) 40 mg capsule Take 40 mg by mouth daily. Active ACETAMINOPHEN ORAL Take 1,000 mg by mouth as needed. Active indomethacin (INDOCIN) 50 mg capsule Take 50 mg by mouth once as needed. Active promethazine (PHENERGAN) 50 mg tablet Take 50 mg by mouth once as needed (For headaches). Active tretinoin (RETIN-A) 0.05 % creamIndications :Acne vulgaris Apply topically to affected area at bedtime. sparing. Do not apply immediately after washing, may sting. 45 g 6 1 Active clindamycin-daphne oyl peroxide (BENZACLIN) gelIndications:A cne vulgaris Apply topically to affected area daily. Apply to affected area after the skin has been cleansed and dried. 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 Apply to elbow for 2-3 weeks, then use as needed for itch 45 g 3 1 Active doxycycline (VIBRA-TABS) 100 mg tablet Take 1 Tablet by mouth 2 times daily. May cause upset stomach or photosensitivit y. 180 Tablet 1 Active Active Problems No known active problems Social History Tobacco Use Types Packs/Day Years Used Date Smoking Tobacco: Never Smokeless Tobacco: Never Interpersonal Safety Answer Date Record ed Physically Hurt Never 07/05/2020 Verbally Threaten Not on file 07/05/2020 Sex and Gender Information Value Date Recorded Sex Assigned at Not on file Legal Sex Male 9:21 EDT Gender Identity Male 09/21/2020 7:56 EDT Sexual Orientation Not on file Obstetrics History Plan of Treatment Health Maintenance Due Date Last Done Comments Hepatitis C Screen 2003 Hepatitis B Vaccine (1 of 3 - 19+ 3-dose series) 05/11 COVID-19 Vaccine (2023- season) 2023 Insurance MEDICAID [place] [facility] Address: [address] [address] Care Teams Team Facilitator Relationship Specialty Start Date End Date Unknown, Provider, PCP - General 11/28/15
--- OUTSIDE RECORDS SUMMARY | 2024-03-24 10:20 | XMS_ITS | Encounter Summary ---
Author Organization [facility] [place] [address] Care Team Providers Care Steamtable Attendant Railroad Name Role Phone Inez Cash MD Primary Care Provider [phone] Reason for Visit * Reason Comments Medication Refill Encounter Details Date Type Department Care Team (Late st Contact Info) Description 09/24/2012 [place] [address] Mimi Maurice MD [facility] [place] [address] Behavioral disorder (Primary Dx) Social History Tobacco Use Types [...] as of this encounter Visit Diagnoses Diagnosis Behavioral disorder- Primary Unspecified disturbance of conduct documented in this encounter Care Teams Steamtable Attendant Railroad Relationship Specialty Start Date End Date Inez Cash MD [address] [place] [address] PCP - General 01/15/10 documented as of this encounter
--- OUTSIDE RECORDS SUMMARY | 2024-03-24 10:20 | XMS_ITS | Encounter Summary ---
Author Organization [facility] Address [facility] [place] [address] Care Team Providers Care Internet Marketing Manager Name Role Phone Inez Cash MD Primary Care Provider [phone] Reason for Visit * Reason Comments Medication Refill Encounter Details Date Type Department Care Team (Late st Contact Info) Description 08/18/2013 [place] [address] Mimi Maurice MD [facility] [place] [address] Social History Tobacco Use Types Packs/Day Years [...] on filedocumented in this encounter Care Teams Internet Marketing Manager Relationship Specialty Start Date End Date Inez Cash MD [address] [place] [address] [place] [address] PCP - General 01/15/10 documented as of this encounter
--- OUTSIDE RECORDS SUMMARY | 2024-03-24 10:20 | XMS_ITS | Encounter Summary ---
Author Organization [facility] Address [facility] [place] [address] Care Team Providers Care Photo Producer Name Role Phone Inez Cash MD Primary Care Provider [phone] Reason for Visit * Reason Comments Medication Refill Encounter Details Date Type Department Care Team (Late st Contact Info) Description 03/16/2014 [place] [address] Mimi Maurice MD [facility] [place] [address] Social History Tobacco Use Types Packs/Day Years [...] on filedocumented in this encounter Care Teams Photo Producer Relationship Specialty Start Date End Date Inez Cash MD [address] [place] [address] [place] [address] PCP - General 01/15/10 documented as of this encounter
--- OUTSIDE RECORDS SUMMARY | 2024-03-24 10:20 | XMS_ITS | Encounter Summary ---
Author Organization [facility] Address [address] [place] [address] Care Team Providers Care Delivery Consultant Name Role Phone Unknown, Provider Primary Care Provider Joselyn vásquez Encounter Details Date Type Department Care Team (Late st Contact Info) Description 07/05/2020 Abstract [facility] [address] [facility], [place], [place] [address] Rosa Kaur MD [address] [place] [phone] Social History Tobacco Use Types Packs/Day Years Used Date Smoking Tobacco: Never Assessed Interpersonal Safety Answer Date Record ed Physically Hurt Never 07/05/2020 Verbally Threaten Not on file 07/05/2020 Sex and Gender Information Value Date Recorded Sex Assigned at Not on file Legal Sex Male 9:21 EDT Gender Identity Male 09/21/2020 7:56 EDT Sexual Orientation Not on file documented as of this encounter Progress Notes * Damaris Caraballo MA - 07/05/2020 1636 EDT Chart abstractions taken from referral to dermatology. Referral was sent from [facility] for acne. documented in this encounter Plan of Treatment Not on file documented as of this encounter Visit Diagnoses Not on filedocumented in this encounter Historical Medications * This list may reflect changes made after this encounter. promethazine (PHENERGAN) 50 mg tablet Take 50 mg by mouth once as needed (For headaches). indomethacin (INDOCIN) 50 mg capsule Take 50 mg by mouth once as needed. ACETAMINOPHEN ORAL Take 1,000 mg by mouth as needed. FLUoxetine (PROZAC) 40 mg capsule Take 40 mg by mouth daily. FLUoxetine (PROZAC) 10 mg capsule Take 10 mg by mouth daily. ARIPiprazole (ABILIFY) 2 mg tablet Take 2 mg by mouth daily. tretinoin (RETIN-A) 0.025 % cream Apply topically daily. 1 erythromycin with ethanoL (EMGEL) 2 % gel Apply topically 2 times daily. 1 added in this encounter Care Teams Delivery Consultant Relationship Specialty Start Date End Date Unknown, Provider, PCP - General 11/28/15 documented as of this encounter
--- OUTSIDE RECORDS SUMMARY | 2024-03-24 10:20 | XMS_ITS | Referral Summary ---
Author Organization [facility] Address [address] [place] [address] Care Team Providers Care Engine Room Operator Name Role Phone Unknown, Provider Primary Care [...] 7:56 EDT Sexual Orientation Not on file Functional Status * Because of a physical, mental, or emotional condition, does this person have difficulty doing errands alone such as visiting a doctor's office or shopping? Answer Date of Assessment Author No 11/13/2020 9:29 EDT Mental Status * Because of a physical, mental, or emotional condition, does this person have serious difficulty concentrating, remembering, or making decisions? Answer Entry Date Author No 11/13/2020 9:29 EDT Plan of Treatment Not on file Insurance MEDICAID [place] [facility] Address: [address] [address] Care Teams Engine Room Operator Relationship Specialty Start Date End Date Unknown, Provider, PCP - General 11/28/15
--- OUTSIDE RECORDS SUMMARY | 2024-03-24 10:20 | XMS_ITS | Encounter Summary ---
Author Organization [facility] Address [facility] [place] [address] Care Team Providers Care Structural Iron Worker Name Role Phone Inez Cash MD Primary Care Provider [phone] Reason for Visit * Reason Comments Other Encounter Details Date Type Department Care Team (Late st Contact Info) Description 03/18/2012 Telephone [place] [phone] Abdiel Saez MD [facility] [place] [address] Social History Tobacco Use Types Packs/Day Years [...] Telephone Encounter - Abdiel Saez MD - 03/18/2012 12:33 PM EST 9th day on zoloft, 3 days of higher dose This week, Thursday and Thursday, no patience. Agitated, wanting to kill his friends (he said) Yesterday spent day at school with 1:1 away from his class, held it together Not seeing this at home Comes home does his homework, getting along with brother actually better Definitely gone backwards IEP meeting yesterday Mom happy with plan Put him back in class today, willing to give him another couple of weeks Fidgeting a lot most of the day with decreased attention, keeping him on task a little hard Plan: Add back in 2 drops of risperdal as we are waiting for zoloft to get into his system Call back in 7-10 days, if things not getting better, will d/c the zoloft and consider buspar * Telephone Encounter - Abdiel Saez MD - 03/18/2012 12:33 PM EST Message copied by ABDIEL SAEZ on ThuMar 18, 2012 12:33 PM ------ Message from: KIRILL TIM Created: ThuMar 17, 2012 12:20 PM Contact: Mother, Vani She left a message yesterday and is calling again. Mom thinks he is having an adverse reaction to medication. He is a patient of Dr. Saez. He's becoming MUCH more aggressive. She would like to talk to someone today if possible to know what to do. documented in this encounter Plan of Treatment Not on file documented as of this encounter Visit Diagnoses Not on filedocumented in this encounter Care Teams Structural Iron Worker Relationship Specialty Start Date End Date Inez Cash MD [address] [place] [address] PCP - General 01/15/10 documented as of this encounter
--- OUTSIDE RECORDS SUMMARY | 2024-03-24 10:20 | XMS_ITS | Encounter Summary ---
Author Organization [facility] Address [facility] [place] [address] Care Team Providers Care Interlibrary Loan Specialist Name Role Phone Inez Cash MD Primary Care Provider [phone] Reason for Visit * Reason Comments Medication Refill Encounter Details Date Type Department Care Team (Late st Contact Info) Description 06/19/2012 [place] [phone] Mimi Maurice MD [facility] [place] [address] Social History Tobacco Use Types Packs/Day Years Used Date Smoking Tobacco: Never Smokeless Tobacco: Never Alcohol Use Standard Drinks/Week Comments No 0 (1 standard drink = 0.6 oz pur e alcohol) Sex and Gender Information Value Date Recorded Sex Assigned at Not on file Gender Identity Not on file Sexual Orientation Not on file documented as of this encounter Miscellaneous Notes * Addendum Note - Stormy Padilla RN - 06/24/2012 8:10 AM EDTAddended by: STORMY PADILLA on: 06/24/2012 08:10 AM Modules accepted: Orders documented in this encounter Plan of Treatment Not on file documented as of this encounter Visit Diagnoses Not on filedocumented in this encounter Care Teams Interlibrary Loan Specialist Relationship Specialty Start Date End Date Inez Cash MD [address] [place] [address] [place] [address] PCP - General 01/15/10 documented as of this encounter
--- OUTSIDE RECORDS SUMMARY | 2024-03-24 10:20 | XMS_ITS | Encounter Summary ---
Author Organization [facility] Address [facility] [place] [address] Care Team Providers Care Services Advisor Name Role Phone Inez Cash MD Primary Care Provider [phone] Reason for Visit * Reason Comments Medication Refill Encounter Details Date Type Department Care Team (Late st Contact Info) Description 10/09/2014 [place] [address] Mimi Maurice MD [facility] [place] [address] Social History Tobacco Use Types Packs/Day Years [...] on filedocumented in this encounter Care Teams Services Advisor Relationship Specialty Start Date End Date Inez Cash MD [address] [place] [address] [place] [address] PCP - General 01/15/10 documented as of this encounter
--- OUTSIDE RECORDS SUMMARY | 2024-03-24 10:20 | XMS_ITS | Encounter Summary ---
Author Organization [facility] [place] [address] Care Team Providers Care Web Design Intern Name Role Phone Inez Cash MD Primary Care Provider [phone] Reason for Visit * Reason Comments Other follow up Encounter Details Date Type Department Care Team (Late st Contact Info) Description 09/16/2010 11:15 AM EDT [place] [id number] Mimi Maurice MD [facility] [address] Disruptive behavior disorder; Receptive expressive language disorder; Anxiety Discharge Disposition: Home Social History [...] Sign Reading Time Taken Comments Blood Pressure 102/66 09/16/2010 11:15 AM EDT Pulse 97 09/16/2010 11:15 AM EDT Temperature - - Respiratory Rate 20 09/16/2010 11:1 5 AM EDT Oxygen Saturation - - Inhaled Oxygen Concentration - - Weight 27.5 kg (60 lb 9.6 oz) 1 11:15 AM EDT Height 130 cm (4' 3.18) 09/16/2010 11: 15 AM EDT Head Circumference 54.5 cm 09/16/2010 11 :15 AM EDT Body Mass Index 16.27 09/16/2010 11:15 AM EDT Body Mass Index Percentile 66.39% 09/16 11:15 AM EDT Growth Chart: [facility] (Boys, 2-2 0 Years) documented in this encounter Patient Instructions * Patient Instructions* Mimi Maurice MD - 09/16/2010 12:24 PM EDT 1. Continue with Risperdal 0.25 mg twice daily 2. Continue with school accommodations including 1:1 aide and speech and language therapy. 3. Set up a meeting with the school for 6 weeks into the school year (mid- November) to discuss how the transition to the new year and the new Aides has gone. 4. Continue with consistent and structured reactions to negative behavior including explanations ofbehavior, time out and if necessary, time in room with a reminder of what the negative behavior was. Pick a couple of behaviors to work on at a time, once doing better in that area, then work on the next behavior. 5. Work on confronting anxiety by having Torin make baby steps towards the things that make him anxious and ensuring a positive outcome. Work on deep breathing and visualization as techniques to helphim through the times that make him anxious. 6. Continue providing Torin with opportunities for extracurricular activities such as baseball and gymnastics 7. Follow up in 4 months documented in this encounter Progress Notes * Mimi Maurice MD - 09/16/2010 12:14 PM EDT Subjective: Patient ID: Torin Talamantes is a 5 y.o. male. HPI Torin comes in for a followup visit accompanied by his mother. Since the last visit, Torin has beendoing fairly well. At the last visit I discussed reducing and then attention to discontinue the Risperdal since he overall he had been doing fairly well. His mother tried to do this during the summerhowever he became cranky irritable and mouthy prior to getting all the way off of the medication and so she restarted back at the previous dose, 0.25 mg twice daily. While on Risperdal, Torin's behavior is described as manageable. He has been busy through the summer and when busy he does fairly well. Recent played baseball in the spring and it went great. He is attending some summer school however her overall it only at up to about 9 hours over 3 weeks. The plan for school in the fall is to continue with a full-time aide, however, 2 aids will be sharing that position rather than him having one single aide through the day and both aides will be new compared to the aide he had the previous 2 years. This makes his mother somewhat nervous . Difficulties to continue in terms of anger. Recent continues to get easily frustrated and has a hard time understanding when he does something wrong. When corrected he will have a bit of affect and frequently sent to his room. After spending about 20 minutes in his room he typically comes out, but still denies responsibility for whatever action got him in trouble. Review of Systems Constitutional: Negative. Appetite change: eating okay, still prefers junk, gets fixated on a certain meal but will eat 1 bite of everything. HENT: Negative. Eyes: Negative. Respiratory: Negative. Cardiovascular: Negative. Gastrointestinal: Negative. Genitourinary: Negative. Skin: Negative. Neurological: Negative. Psychiatric/Behavioral: Negative. Sleep disturbance: falling asleep with parent and then transferred to own bed, stays asleep through the night. Objective: Physical Exam Constitutional: He is oriented to person, place, [...] Gait Gait: normal Assessment and Plan: Torin Talamantes is a 5-year-old boy with a previous history of a disruptive behavioral disorder, anxiety and and expressive and receptive language delay. Leslie has shown a great response to Risperdal, however, does appear to still need the medication. At this point in time it will be important to continue using some behavioral management strategies as well as some cognitive behavioral strategies towork on Torin's is ongoing difficulties with anger and anxiety. While Torin is on medication it seems that the strategies will be more likely to be effective. It will be important to carefully monitor recently enters into school next year given all the changes that will be occurring. Torin frequently has a hard time with change. Patient Instructions 1. Continue with Risperdal 0.25 mg twice daily 2. Continue with school accommodations including 1:1 aide and speech and language therapy. 3. Set up a meeting with the school for 6 weeks into the school year (mid- November) to discuss how the transition to the new year and the new Aides has gone. 4. Continue with consistent and structured reactions to negative behavior including explanations ofbehavior, time out and if necessary, time in room with a reminder of what the negative behavior was. Pick a couple of behaviors to work on at a time, once doing better in that area, then work on the next behavior. 5. Work on confronting anxiety by having Torin make baby steps towards the things that make him anxious and ensuring a positive outcome. Work on deep breathing and visualization as techniques to helphim through the times that make him anxious. 6. Continue providing Torin with opportunities for extracurricular activities such as baseball and gymnastics 7. Follow up in 4 months It was a pleasure meeting with Torin Talamantes and family in the Child Neurology and Development program. Please do not hesitate to contact me with any questions or concerns. Sincerely, Mimi Maurice M.D. Developmental Manager Life documented in this encounter Plan of Treatment Not on file documented as of this encounter Visit Diagnoses Diagnosis Disruptive behavior disorder Unspecified disturbance of conduct Receptive expressive language disorder Mixed receptive-expressive language disorder Anxiety Anxiety state, unspecified documented in this encounter Care Teams Web Design Intern Relationship Specialty Start Date End Date Inez Cash MD [address] [place] [address] [place] [address] PCP - General 01/15/10 documented as of this encounter
--- OUTSIDE RECORDS SUMMARY | 2024-03-24 10:20 | XMS_ITS | Encounter Summary ---
Author Organization [facility] Address [facility] [place] [address] Care Team Providers Care Youth Associate Name Role Phone Inez Cash MD Primary Care Provider [phone] Reason for Visit * Reason Comments Other Encounter Details Date Type Department Care Team (Late st Contact Info) Description 09/27/2012 Telephone Child Development at [facility] [place] [phone] Abdiel Saez MD [facility] [place] [place] [address] Social History Tobacco Use Types Packs/Day Years [...] Telephone Encounter - Abdiel Saez MD - 09/27/2012 10:14 AM EDT Increased aggressiveness Very rigid and will respond to perceived unfairness with aggression Kicked off soccer team on first day Plan: Try and increase risperdal to 0.5 mg bid, initially increase night and then 3-4 days later increase am dose If already getting more then we think can increase to 1 mg bid as recommended above. PCP to let me know what ended up being joann plan * Telephone Encounter - Abdiel Saez MD - 09/27/2012 10:14 AM EDT Message copied by ABDIEL SAEZ on ThuSep 27, 2012 10:14 AM ------ Message from: ANDRIA RIGGS Created: ThuSep 27, 2012 9:46 AM Contact: Dr. Inez Saez, I think that you probably want to talk to Dr. Cash. Thanks, Andria ----- Message ----- From: Rosa Pinto Sent: 09/27/2012 8:45 AM To: Andria Riggs, RN Dr. Cash, PCP phoned stating she would like to speak with Dr. Saez regarding medication questions and concerns about aggression Torin is having. Please call Dr. Cash for details. She stated he is currently taking risperiDONE (RISPERDAL) 1 mg/mL oral solution. She is wondering if some med ch anges should be made before he sees her in 2 wks. documented in this encounter Plan of Treatment Not on file documented as of this encounter Visit Diagnoses Not on filedocumented in this encounter Care Teams Youth Associate Relationship Specialty Start Date End Date Inez Cash MD [address] [place] [address] [place] [address] PCP - General 01/15/10 documented as of this encounter
--- OUTSIDE RECORDS SUMMARY | 2024-03-24 10:20 | XMS_ITS | Encounter Summary ---
Author Organization [facility] Address [facility] [place] [address] Care Team Providers Care Switchboard Operator Name Role Phone Inez Cash MD Primary Care Provider [phone] Reason for Referral * Speech Therapy (Routine) - Closed by system - unspecified Specialty Diagnoses / Procedures Referred By Mary snyder Referred To Contact Speech Pathology Diagnoses Speech and language disorder Mimi Maurice MD [facility] [place] [address] Referral ID Status Reason Start Date Expiration Date Visits Requested Visits Authorized [id number] Closed by system - unspecified Evaluate and Treat 06/03/2011 11/30/2011 1 1 Reason for Visit * Reason Comments Delayed Development Childhood Encounter Details Date Type Department Care Team (Late st Contact Info) Description 06/03/2011 8:15 AM EDT [place] [address] Mimi Maurice MD [facility] [place] [address] Speech and language disorder (Primary Dx); Behavior disorder Discharge Disposition: Home Social History Tobacco [...] Sign Reading Time Taken Comments Blood Pressure 90/52 06/03/2011 8:24 AM EDT Pulse 88 06/03/2011 8:24 AM EDT Temperature - - Respiratory Rate - - Oxygen Saturation - - Inhaled Oxygen Concentration - - Weight 28.8 kg (63 lb 6.4 oz) 06/03/2011 8:24 AM EDT Height 135.2 cm (4' 5.23) 06/03/2011 8:24 AM ED T Head Circumference 55.2 cm 06/03/2011 8:24 AM EDT Body Mass Index 15.73 06/03/2011 8:24 AM EDT Body Mass Index Percentile 48.54% 06/03/2011 8:2 4 AM EDT Growth Chart: [facility] (Boys, 2-2 0 Years) documented in this encounter Patient Instructions * Patient Instructions* Mimi Maurice MD - 06/03/2011 9:19 AM EDT 1. Continue with risperdal 0.5 ml twice daily for right now. We will continue to let Torin grow andsee if he can outgrow his dose 2. Continue [facility] school based services including reading assistance and speech and language therapy. 3. It would be beneficial for Torin's school speech and language therapist to send him activities for Mrs. Talamantes to work on at home with Torin to both help him with his articulation as well as language development. 4. I am happy with the plan for Torin to attend summer school ([employer]) 5. When Torin is due for his 3 year school re-evaluation, he should have full cognitive testing. 6. I recommend private speech and language therapy this summer in addition to his school based services in order to give Torin's mother some additional ways to help Torin with his language development. One place to obtain such services would include [facility] in [place] [phone]. 7. Follow up with me again the end of the summer. documented in this encounter Progress Notes * Mimi Maurice MD - 06/04/2011 10:53 PM EDT Subjective: Patient ID: Torin Talamantes is a 6 y.o. male. HPI Torin comes in for a followup visit accompanied by his mother. As you may recall, Torin has a language disorder, anxiety and a disruptive behavioral disorder. Currently Torin is taking Risperdal 0.5 mg twice daily. Overall, Torin continues to show great progress over the past several months. His behavior has significantly improved. His anxiety has significantly improved. He's had a huge jump in terms of readingas well as socialization this year. He is getting along better with peers. His mother describes jarvis becoming much more of a conversationalist. However, she remains concerned about Torin's language. He has a hard time following conversations. He gets frustrated with his inability to communicateand express his thoughts. When this occurs, Torin becomes easily angered. This can occur both at home as well as at school. Torin continues to receive services in school including speech and language therapy [weekly?] As well as perhaps daily visits with a conservation specialist. He is currently doing the [employer] reading program. He has a one-on-one aide in the classroom. Although Torin has been making steady progress, his mother is looking for more ways to be able to help him with his language and learning. Review of Systems Constitutional: Negative. HENT: Negative. Eyes: Negative. Respiratory: Negative. Cardiovascular: Negative. Gastrointestinal: Negative. Genitourinary: Negative. Skin: Negative. Neurological: Negative. Psychiatric/Behavioral: Negative. Objective: Physical Exam Vitals reviewed. Constitutional: He [...] normal. Coordination normal. Skin: Skin is warm. Psychiatric: Chatty with me, telling lots of stories Good eye contact, good joint and shared attention Did become frustrated at one point when he was telling a story and his mother and I were not able to follow. Both receptive and expressive language appears delayed Neurologic Exam Mental Status Oriented to person, place, and time. Cranial Nerves CN III, IV, Pupils are equal, round, and reactive to light. Gait, Coordination, and Reflexes Gait Gait: normal As part of today's visit Torin Talamantes was administered the [place] Picture Vocabulary Test (PPVT), 4th edition. The PPVT is a test that measures a child's receptive (or understanding) language. Average on this test is 100, and the average range is 85-115. The PPVT is one component of assessing a child's language development and can help in the diagnosis of language disorders. All test forms areavailable in the paper chart. Torin sat nicely in a small table for testing. He showed fairly good focus and attention. He was cooperative and put forth good effort. Standard score 77 [6th percentile], age equivalent 5 years 7 months or kindergarten level, moderately low score. Torin Talamantes was administered the [place] Brief Intelligence Test-2 (KBIT-2) as part of today's visit. The KBIT-2 is a brief, individually administered measure of verbal and nonverbal intelligence,designed for ages 4 through 90. The Verbal scale includes receptive and expressive language items, but does not require reading or spelling. The average score on this test is 100 with an average range of 85-115. Once again, Torin put forth good effort. I did this testing in order to get a sense of some of Torin's nonverbal skills compared with his verbal abilities. [place] Brief Intelligence Test-2 Standard Score Verbal IQ 64 [1st percentile] Nonverbal IQ 105 [63rd percentile ] Composite IQ not done due to significant discrepancy Verbal-Nonverbal Split Assessment and Plan: Torin is a sweet 6 year old second grader who has shown remarkable progress in terms of his behavior. In the past he was oppositional, defiant and aggressive. This was impacting his development. Torin now enjoys spending time with peers and does well both at home as well as in the classroom. He hasmade great gains in terms of his language and academic development, however, he continues to be significantly behind in terms of his language. This continues to be an area of frustration for him. Although Torin is receiving services in school, perhaps they are not as intensive as he needs. Torin's mother would like to be able to provide him with additional stimulation at home and I think that this is a good idea. Torin's age-appropriate nonverbal skills are a good sign. It will be important to continue to support Torin developmentally and behaviorally in order for him to make appropriate language and academic progress. Patient Instructions 1. Continue with risperdal 0.5 ml twice daily for right now. We will continue to let Torin grow andsee if he can outgrow his dose 2. Continue [facility] school based services including reading assistance and speech and language therapy. 3. It would be beneficial for Torin's school speech and language therapist to send him activities for Mrs. Talamantes to work on at home with Torin to both help him with his articulation as well as language development. 4. I am happy with the plan for Torin to attend summer school ([employer]) 5. When Torin is due for his 3 year school re-evaluation, he should have full cognitive testing. 6. I recommend private speech and language therapy this summer in addition to his school based services in order to give Torin's mother some additional ways to help Torin with his language development. One place to obtain such services would include [facility] in [place] [phone]. 7. Follow up with me again the end of the summer. It was a pleasure meeting with Torin Talamantes and family in the Child Neurology and Development program. Please do not hesitate to contact me with any questions or concerns. Sincerely, Mimi Maurice M.D. Developmental Refining Equipment Operator documented in this encounter Plan of Treatment Scheduled Referrals Name Type Priority Associated Diagnoses Orde r Schedule REFERRAL TO SPEECH THERAPY Outpatient Referral Routine Speech and language disorder Ordered: 06/03/2011 documented as of this encounter Visit Diagnoses Diagnosis Speech and language disorder- Primary Other speech disturbance Behavior disorder Unspecified disturbance of conduct documented in this encounter Care Teams Switchboard Operator Relationship Specialty Start Date End Date Inez Cash MD [address] [place] [address] PCP - General 01/15/10 documented as of this encounter
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
--- OUTSIDE RECORDS SUMMARY | 2024-03-24 10:20 | XMS_ITS | Encounter Summary ---
Author Organization [facility] Address [facility] [place] [address] Care Team Providers Care Maintenance Shop Laborer Name Role Phone Inez Cash MD Primary Care Provider [phone] Reason for Visit * Reason Comments Medication Refill Encounter Details Date Type Department Care Team (Late st Contact Info) Description 11/26/2014 [place] [address] Mimi Maurice MD [facility] [place] [place] [address] Social History Tobacco Use Types Packs/Day Years [...] on filedocumented in this encounter Care Teams Maintenance Shop Laborer Relationship Specialty Start Date End Date Inez Cash MD [address] [place] [address] [place] [address] PCP - General 01/15/10 documented as of this encounter
--- OUTSIDE RECORDS SUMMARY | 2024-03-24 10:20 | XMS_ITS | Encounter Summary ---
Author Organization [facility] Address [facility] [place] [address] Care Team Providers Care Informatica Name Role Phone Inez Cash MD Primary Care Provider [phone] Encounter Details Date Type Department Care Team (Late st Contact Info) Description 12/13/2018 1:35 PM EST Ancillary Procedure Radiology Library at [facility] [place] [phone] Mike Gongora MD [facility] [place] [address] Social History Tobacco Use Types Packs/Day Years [...] Procedure Name Priority Date/Time Associated Diagnosis Comments FILM LIBRARY STORAGE ONLY CT HEAD Routine 12/13/2018 1:32 PM EST documented in this encounter Results * Film Library- Storage Only CT Head (12/13/2018 1:32 PM EST) Narrative VALENTE - 12/13/2018 1:32 PM EST This exam is auto-finalizing. It's purpose is for storage only. Mike Gongora MD G FILM LIBRARY ORD ERABLES VALENTE [place] documented in this encounter Visit Diagnoses Not on filedocumented in this encounter Care Teams Informatica Relationship Specialty Start Date End Date Inez Cash MD [address] [facility] [place] [address] PCP - General 01/15/10 documented as of this encounter
--- OUTSIDE RECORDS SUMMARY | 2024-03-24 10:21 | XMS_ITS | Encounter Summary ---
[place] [address] Care Team Providers Care Assembly Person Name Role Phone Unavailable Primary Care Provider Unavailabl e Encounter Details Date Type Department Care Team (Late st Contact Info) Description 12/13/2009 3:15 PM EDT Office Visit Audiology at [address] [phone] Arline Moraes, CINDY Social History Tobacco Use Types Packs/Day Years Used Date Smoking Tobacco: Never Assessed Sex and Gender Information Value Date Recorded Sex Assigned at Not on file Gender Identity Not on file Sexual Orientation Not on file documented as of this encounter Plan of Treatment Not on file documented as of this encounter Visit Diagnoses Not on filedocumented in this encounter
--- OUTSIDE RECORDS SUMMARY | 2024-03-24 10:21 | XMS_ITS | Encounter Summary ---
Author Organization [facility] Address [facility] [place] [address] Care Team Providers Care Suction Worker Name Role Phone Inez Cash MD Primary Care Provider [phone] Encounter Details Date Type Department Care Team (Late st Contact Info) Description 04/22/2010 11:15 AM EDT Follow-Up [facility] Development at [facility] [place] [phone] Mimi Maurice MD [facility] [place] [address] Discharge Disposition: Home Social History Tobacco Use Types Packs/Day Years Used Date Smoking Tobacco: Never Assessed Sex and Gender Information Value Date Recorded Sex Assigned at Not on file Gender Identity Not on file Sexual Orientation Not on file documented as of this encounter Plan of Treatment Not on file documented as of this encounter Procedures Procedure Name Priority Date/Time Associated Diagnosis Comments DIFFERENTIAL, AUTOMATED Routine 04/22/2010 12:14 PM EDT CBC (WITH DIFF) Routine 04/22/2010 12:14 PM EDT TSH Routine 04/22/2010 12:14 PM EDT GLUCOSE Routine 04/22/2010 12:14 PM EDT CHOLESTEROL, TOTAL Routine 04/22/2010 12 :14 PM EDT documented in this encounter Results * (ABNORMAL) REFLEX LAB-A-DIFF (04/22/2010 12:14 PM EDT) Neutrophil % 49.0 33.0 - 73.0 % CERNER MILLENNIUM Neutrophil Absolute 2.64 1.50 - 8.00 x10(3)/mc L CERNER MILLENNIUM Lymph % 36.2 22.0 - 57.0 % CERNER MILLENNIUM Lymphocytes Abs 2.0 1.5 - 6.8 x10(3)/mc L CERNER MILLENNIUM Monocyte % 7.4 2.0 - 12.0 % CERNER MILLENNIUM Monocyte Abs 0.4 0.2 - 1.0 x10(3)/mc L CERNER MILLENNIUM Eos % 7.2(H) 0.0 - 7.0 % CERNER MILLENNIUM Eosinophils Abs 0.4 0.0 - 0.5 x10(3)/mc L CERNER MILLENNIUM Basophil % 0.2 0.0 - 2.0 % CERNER MILLENNIUM Baso Absolute 0.0 0.0 - 0.2 x10(3)/mc L CERNER MILLENNIUM Immature Gran % 0.00 0.00 - 0.66 % CERNER MILLENNIUM Comment: Immature granulocytes(IG's)percentage and absolute count will include metamyelocytes, myelocytes, and promyelocytes. Blood smears from CBCs yielding IG's will be scanned manually for concordance. If this scan disagrees with the automated IG or if promyelocytes are noted, a manual differential will be performed. Immature Gran Absolute 0.00 0.00 - 0.05 x10(3)/mc L CERNER MAUROENNIUM Blood specimen (specimen) 04/22/2010 12:14 PM EDT 04/22/2010 12:20 PM EDT Mimi Maurice MD HEMATOLOGY ORDERABLE S TEDDY MATAMOROSIUM * TSH (04/22/2010 12:14 PM EDT) Pathologist [facility] Thyroid Stimulating Hormone 1.38 0.27 - 4.20 mcIU/mL CERNER MAUROENNIUM Comment: Cord Blood R eference Range: 0.3 to 23.00 mcIU/mL Blood specimen (specimen) 04/22/2010 12:14 PM EDT 04/22/2010 12:20 PM EDT Mimi Maurice MD CHEMISTRY ORDERABLES Performing Organization Address City/[facility] Co de Phone Number [facility] * CHOLESTEROL, TOTAL (04/22/2010 12:14 PM EDT) Cholesterol, Total 111 <=199 mg/dL [facility] Comment: Recommendations of the NCEP Adult Treatment Panel for the following risk cutoff thresholds for the [place] population: Desirable: <200 mg/dL Borderline High: 200-239 mg/dL High: > or = 240 mg/dL Blood specimen (specimen) 04/22/2010 12:14 PM EDT 04/22/2010 12:20 PM EDT Mimi Maurice MD CHEMISTRY ORDERABLES Performing Organization Address [facility] Phone Number [facility] * GLUCOSE, RANDOM (04/22/2010 12:14 PM EDT) Glucose 102 60 - 199 mg/dL [facility] Comment:Diabetes: >=200 mg/d L plus symptoms Blood specimen (specimen) 04/22/2010 12:14 PM EDT 04/22/2010 12:20 PM EDT Mimi Maurice MD CHEMISTRY ORDERABLES Performing Organization Address [facility] de Phone Number [facility] * CBC (WITH DIFF) (04/22/2010 12:14 PM EDT) White Blood Cell 5.4 4.5 - 14.0 x10(3)/mcL CERNER MILLENNIUM Red Blood Cell 4.71 4.00 - 5.20 x10(6)/mcL CERNER MILLENNIUM Hemoglobin 13.1 11.5 - 15.5 gm/dL CERNER MILLENNIUM Hematocrit 37.1 35.0 - 45.0 % CERNER MILLENNIUM Mean Cell Volume 78.8 75.0 - 93.0 fL CERNER MILLENNIUM Mean Cell Hemoglobin 27.8 25.0 - 33.0 pg CERNER MILLENNIUM Mean Cell Hemoglobin Concentration 35.3 32.0 - 36.5 gm/dL CERNER MILLENNIUM Platelet 272 145 - 370 x10(3)/mcL CERNER MILLENNIUM RDW Standard Deviation 35.9 35.0 - 46.0 fL CERNER MILLENNIUM RDW coefficient of variation 12.4 10.9 - 14.4 % CERNER MILLENNIUM Mean Platelet Volume 10.8 9.0 - 12.0 fL CERNER MILLENNIUM Blood specimen (specimen) 04/22/2010 12:14 PM EDT 04/22/2010 12:20 PM EDT Mimi Maurice MD HEMATOLOGY ORDERABLE S TEDDY REINOSO documented in this encounter Visit Diagnoses Not on filedocumented in this encounter Care Teams Suction Worker Relationship Specialty Start Date End Date [place] [address] PCP - General 01/15/10 documented as of this encounter
--- OUTSIDE RECORDS SUMMARY | 2024-03-24 10:21 | XMS_ITS | Encounter Summary ---
Author Organization [facility] [place] [address] Care Team Providers Care Tank Insulator Rubber Name Role Phone Inez Cash MD Primary Care Provider [phone] Encounter Details Date Type Department Care Team (Late st Contact Info) Description 01/21/2010 11:15 AM EST Follow-[place] [phone] Mimi Maurice MD [facility] [place] [address] Discharge Disposition: Home Social History Tobacco Use [...] on filedocumented in this encounter Care Teams Tank Insulator Rubber Relationship Specialty Start Date End Date Inez Cash MD [facility] [address] PCP - General 01/15/10 documented as of this encounter
--- OUTSIDE RECORDS SUMMARY | 2024-03-24 10:21 | XMS_ITS | Encounter Summary ---
Author [facility] [place] [address] Care Team Providers Care Medical Assembly Name Role Phone Unavailable Primary Care Provider Unavailabl e Encounter Details Date Type Department Care Team (Late st Contact Info) Description 12/13/2009 10:30 AM EDT Office Visit Psychiatry [place] [address] Fanny Amaya, PhD Social History Tobacco Use Types Packs/Day Years [...]
--- OUTSIDE RECORDS SUMMARY | 2024-03-24 10:21 | XMS_ITS | Encounter Summary ---
Author Organization [facility] [place] [address] Care Team Providers Care Spindle Sander Name Role Phone Inez Cash MD Primary Care Provider [phone] Encounter Details Date Type Department Care Team (Late st Contact Info) Description 01/21/2010 [place] [phone] Mimi Maurice MD [facility] [place] [address] Social History Tobacco Use Types Packs/Day Years Used Date Smoking Tobacco: Never Assessed Sex and Gender Information Value Date Recorded Sex Assigned at Not on file Gender Identity Not on file Sexual Orientation Not on file documented as of this encounter Plan of Treatment Not on file documented as of this encounter Procedures Procedure Name Priority Date/Time Associated Diagnosis Comments DIFFERENTIAL, AUTOMATED Routine 01/21/2010 12:28 PM EST CBC (WITH DIFF) Routine 01/21/2010 12:28 PM EST GLUCOSE Routine 01/21/2010 12:28 PM EST CHOLESTEROL, TOTAL Routine 01/21/2010 12 :28 PM EST documented in this encounter Results * CHOLESTEROL, TOTAL (01/21/2010 12:28 PM EST) [facility] Cholesterol, Total 120 <=199 mg/dL [facility] Comment: Recommendations of the NCEP Adult Treatment Panel for the following risk cutoff thresholds for the [place] population: Desirable: <200 mg/dL Borderline High: 200-239 mg/dL High: > or = 240 mg/dL Blood specimen (specimen) 01/21/2010 12:28 PM EST 01/21/2010 12:45 PM EST Mimi Maurice MD CHEMISTRY ORDERABLES CERNER MILLENNIUM * GLUCOSE, RANDOM (01/21/2010 12:28 PM EST) Glucose 91 <=199 mg/dL CERNER MILLENNIUM Comment:Diabetes: >=200 mg/d L plus symptoms Blood specimen (specimen) 01/21/2010 12:28 PM EST 01/21/2010 12:45 PM EST Mimi Maurice MD CHEMISTRY ORDERABLES Performing Organization Address City/[facility] Co de Phone Number CERNER MILLENNIUM * (ABNORMAL) REFLEX LAB-A-DIFF (01/21/2010 12:28 PM EST) Neutrophil % 53.5 33.0 - 73.0 % CERNER MILLENNIUM Neutrophil Absolute 2.44 1.50 - 8.00 x10(3)/mc L CERNER MILLENNIUM Lymph % 32.2 22.0 - 57.0 % CERNER MILLENNIUM Lymphocytes Abs 1.5 1.5 - 6.8 x10(3)/mc L CERNER MILLENNIUM Monocyte % 12.5(H) 2.0 - 12.0 % CERNER MILLENNIUM Monocyte Abs 0.6 0.2 - 1.0 x10(3)/mc L CERNER MILLENNIUM Eos % 0.9 0.0 - 7.0 % CERNER MILLENNIUM Eosinophils Abs 0.0 0.0 - 0.5 x10(3)/mc L CERNER MILLENNIUM Basophil % 0.7 0.0 - 2.0 % CERNER MILLENNIUM Baso Absolute 0.0 0.0 - 0.2 x10(3)/mc L CERNER MILLENNIUM Immature Gran % 0.20 0.00 - 0.66 % CERNER MILLENNIUM Comment: Immature granulocytes(IG's)percentage and absolute count will include metamyelocytes, myelocytes, and promyelocytes. Blood smears from CBC's yielding IG's will be scanned manually for concordance. If this scan disagrees with the automated IG or if promyelocytes are noted, a manual differential will be performed. Immature Gran Absolute 0.01 0.00 - 0.05 x10(3)/mc L CERNER MILLENNIUM Blood specimen (specimen) 01/21/2010 12:28 PM EST 01/21/2010 12:45 PM EST Mimi Maurice MD HEMATOLOGY ORDERABLE S CERNER MILLENNIUM * CBC (01/21/2010 12:28 PM EST) White Blood Cell 4.6 4.5 - 14.0 x10(3)/mcL CERNER MILLENNIUM Red Blood Cell 4.81 4.00 - 5.20 x10(6)/mcL CERNER MILLENNIUM Hemoglobin 13.6 11.5 - 15.5 gm/dL CERNER MILLENNIUM Hematocrit 38.6 35.0 - 45.0 % CERNER MILLENNIUM Mean Cell Volume 80.2 75.0 - 93.0 fL CERNER MILLENNIUM Mean Cell Hemoglobin 28.3 25.0 - 33.0 pg CERNER MILLENNIUM Mean Cell Hemoglobin Concentration 35.2 32.0 - 36.5 gm/dL CERNER MILLENNIUM Platelet 267 145 - 370 x10(3)/mcL CERNER MILLENNIUM RDW Standard Deviation 37.4 35.0 - 46.0 fL CERNER MILLENNIUM RDW coefficient of variation 12.9 10.9 - 14.4 % CERNER MILLENNIUM Mean Platelet Volume 10.9 9.0 - 12.0 fL CERNER MILLENNIUM Blood specimen (specimen) 01/21/2010 12:28 PM EST 01/21/2010 12:45 PM EST Mimi Maurice MD HEMATOLOGY ORDERABLE S CERNILSON MILLENNIUM documented in this encounter Visit Diagnoses Not on filedocumented in this encounter Care Teams Spindle Sander Relationship Specialty Start Date End Date Stasny, Inez, MD [address] [place] [address] PCP - General 01/15/10 documented as of this encounter
--- OUTSIDE RECORDS SUMMARY | 2024-03-24 10:21 | XMS_ITS | Encounter Summary ---
Author Organization [facility] [place] [address] Care Team Providers Care Dressmaker Or Tailor Name Role Phone Unavailable Primary Care Provider Unavailabl e Encounter Details Date Type Department Care Team (Late st Contact Info) Description 12/10/2009 9:30 AM EDT [place] [address] Mimi Maurice MD [facility] [place] [address] Social History Tobacco Use Types Packs/Day Years [...]
[2024-03-24 22:09] LABS: Glucose 108 mg/dL (74-106)
[2024-03-24 23:36] LABS: LDL CHOLESTEROL 113 mg/dL (<100)
== END 2024-03-24 10:12 | disposition home or self-care (01) ==
LOC: NCHCN 10:11
PROVIDERS: Visit Provider Family Medicine
DX: Z51.81 Encounter for therapeutic drug level monitoring (principal)
CPT/HCPCS: 82947; 83721; 83036